=== PATIENT | male | born 1950 | race Caucasian/White ===

== ENCOUNTER 2017-03-24 12:13 | Day surgery (SDC) | payer MEDICARE, OTHER ==
--- NOTE | 2017-03-21 11:02 | HP ---
DATE OF SURGERY: 03/24/2017 ADMISSION DIAGNOSIS: Right inguinal hernia. ANTICIPATED PROCEDURE: Right inguinal herniorrhaphy with mesh. HISTORY OF PRESENT ILLNESS: The patient has moderate sized symptomatic ventral abdominal hernia. He has had cardiac clearance with Dr. Rosalie Garber. PAST MEDICAL HISTORY: ALLERGIES: NONE. MEDICATIONS: Multiple. PAST SURGICAL HISTORY: Pacemaker. Back for upper and lower surgery. SOCIAL HISTORY: Negative. FAMILY HISTORY: Negative. REVIEW OF SYSTEMS: Orthopedic back surgery. Cardiac Dr. Garber. PHYSICAL EXAMINATION: VITAL SIGNS: Normal. CHEST: Clear. COR: Regular. ABDOMEN: Right inguinal hernia visible. IMPRESSION: Symptomatic right inguinal hernia. The patient was wearing a truss in the office. PLAN: Repair with mesh, this was discussed with him in detail.
[~2017-03-24 12:13] MED LIST: BRIDION 200MG/2ML IV ONE; DIPRIVAN 200 MG/20 ML IV ONE; KEFZOL 1 GM ONE; Lactated Ringers 1,000 ML IV ONE; Quelicin Fliptop 200 MG/10 ML IV ONE; SUBLIMAZE 250 MCG/5 ML IV ONE; Sensorcaine 0.25% 10 ML ONE; Versed 2 MG/2 ML Injection IV ONE; Zemuron 100 MG/10 ML IV ONE
[2017-03-24] MEDS ORDERED: CEFAZOLIN 2 GM-D5W BAG** 2 GM/50 ML ML IV ONE (12:22)
[2017-03-24] MEDS ORDERED: Lactated Ringers 1,000 ML IV SCH (12:30)
[2017-03-24] MEDS ORDERED: SUBLIMAZE 100 MCG/2 ML ONE (17:26)
[2017-03-24] MEDS ORDERED: Zofran 4 MG/2 ML VIAL ONE (17:40)
[2017-03-24] MEDS ORDERED: MORPHINE SULFATE 10 MG/ML ONE (17:40)
[2017-03-24 19:24] VITALS: BP 102/65; PULSE 61; O2SAT 93
--- NOTE | 2017-03-25 07:53 | OP ---
SURGERY DATE/TIME: 03/24/2017 1623 PREOPERATIVE DIAGNOSIS: Symptomatic right inguinal hernia. POSTOPERATIVE DIAGNOSIS: Right inguinal hernia. PROCEDURE: Right inguinal herniorrhaphy with mesh. SURGEON: Ronald Le M.D. ANESTHESIA: General. COMPLICATIONS: None. CONDITION: Stable. INDICATION: A patient requiring herniorrhaphy. DESCRIPTION OF PROCEDURE: Taken to surgery. General anesthetic. Routine prep and drape. Time out performed. 0.25% Marcaine. Curvilinear incision. External oblique opened. An indirect hernia was present. No direct component. Internal ring just slightly dilated. Cord was still nice. A sliding hernia. The sliding portion was able to be removed causing a pseudo-sac and then the pseudo-sac sac was highly ligated under direct visualization suture #0 Prolene. The floor was reinforced with 1 x 4 mesh securing the Odilon's ligament fashioned throughout. The cord and the ilioinguinal nerve which was quite prominent were laid back in position. External oblique closed with 0 Vicryl. Porsche approximated with 3-0 Vicryl. Skin closed with deena. Sterile dressing applied. The patient tolerated the procedure satisfactorily.
== END 2017-03-24 19:30 | disposition home or self-care (01) ==
LOC: SDC 12:13
PROVIDERS: ATTEND Surgery
PROC: 0YU50JZ Supplement Right Inguinal Region with Synthetic Substitute, Open Approach (ICD-10-PCS; principal; 2017-03-24)
DX: K40.90 Unilateral inguinal hernia, without obstruction or gangrene, not specified as recurrent (principal); Z95.0 Presence of cardiac pacemaker
CPT/HCPCS: 00830; 36415; 88302; 93005; C1781; J0330; J0690; J2250; J2270; J2405; J2704; J3010

== ENCOUNTER 2018-11-02 08:33 | Day surgery (SDC) | payer MEDICARE, OTHER ==
--- NOTE | 2018-10-31 14:51 | HP ---
DATE OF SURGERY: 11/02/2018 ADMISSION DIAGNOSIS: Left inguinal hernia. ANTICIPATED PROCEDURE: Repair with mesh. HISTORY OF PRESENT ILLNESS: The patient has a moderate sized symptomatic left inguinal hernia presents for repair. PAST MEDICAL HISTORY: ALLERGIES: SULFA. MEDICATIONS: Omeprazole, metoprolol, Xarelto. PAST SURGICAL HISTORY: Pacemaker. Right inguinal hernia repair. SOCIAL HISTORY: Negative. FAMILY HISTORY: Negative. REVIEW OF SYSTEMS: Pacemaker. Atrial fibrillation. PHYSICAL EXAMINATION: VITAL SIGNS: Normal. CHEST: Clear. COR: Regular. ABDOMEN: Left inguinal hernia. IMPRESSION: Moderate size symptomatic left inguinal hernia. PLAN: Repair.
[~2018-11-02 08:33] MED LIST changes: -BRIDION 200MG/2ML IV ONE; -DIPRIVAN 200 MG/20 ML IV ONE; -KEFZOL 1 GM ONE; -Quelicin Fliptop 200 MG/10 ML IV ONE; -SUBLIMAZE 250 MCG/5 ML IV ONE; -Versed 2 MG/2 ML Injection IV ONE; -Zemuron 100 MG/10 ML IV ONE
[2018-11-02] MEDS ORDERED: Versed 2 MG/2 ML Injection IV ONE (08:34)
[2018-11-02] MEDS ORDERED: DIPRIVAN 200 MG/20 ML IV ONE (08:34)
[2018-11-02] MEDS ORDERED: SUBLIMAZE 250 MCG/5 ML IV ONE (08:34)
[2018-11-02] MEDS ORDERED: Lactated Ringers 1,000 ML IV ONE (08:59)
[2018-11-02] MEDS ORDERED: CEFAZOLIN 2 GM-D5W BAG** 2 GM/50 ML ML IV ONE (08:59)
[2018-11-02] MEDS ORDERED: CEFAZOLIN 2 GM-D5W BAG** 2 GM/50 ML ML IV SCH (09:30)
[2018-11-02] MEDS ORDERED: Lactated Ringers 1,000 ML IV SCH (09:30)
[2018-11-02] MEDS ORDERED: KEFZOL 1 GM ONE (11:30)
[2018-11-02] MEDS ORDERED: TRANDATE 100 MG/20 ML MDV FOR DRIP IV ONE (12:57)
[2018-11-02 14:19] VITALS: PULSE 63; O2SAT 99
[2018-11-02 14:25] VITALS: BP 165/94
--- NOTE | 2018-11-03 08:21 | OP ---
SURGERY DATE/TIME: 11/02/2018 1150 PREOPERATIVE DIAGNOSIS: Symptomatic left inguinal hernia. POSTOPERATIVE DIAGNOSIS: Left inguinal hernia sliding. PROCEDURE: Left inguinal herniorrhaphy with mesh. SURGEON: Ronald Le M.D. ANESTHESIA: General. COMPLICATIONS: None. ESTIMATED BLOOD LOSS: None. CONDITION: Stable. INDICATION: The patient with symptomatic left inguinal hernia. DESCRIPTION OF PROCEDURE: Taken to surgery. General anesthetic. Routine prep and drape. Curvilinear incision. 0.25% Marcaine. External oblique opened. A 2.5 inch indirect hernia. There was a 1 inch sliding component of colon with a racing stripe. Just above the colon wall the sac was secured to the upper edge of the residual sac tied off and placed back in the abdomen. Internal ring closed with two sutures of #0 Prolene. A 1 x 4 mesh placed at the Odilon's ligament throughout. Internal ring was one clamp tight. Hemostasis satisfactory. The repair looked excellent. External oblique closed with 0 Vicryl. Porsche fascia closed with 2-0 Vicryl. Skin closed with deena. Sterile dressing applied. The patient tolerated the procedure satisfactorily.
== END 2018-11-02 14:10 | disposition home or self-care (01) ==
LOC: SDC 08:33
PROVIDERS: ATTEND Surgery
DX: K40.90 Unilateral inguinal hernia, without obstruction or gangrene, not specified as recurrent (principal); I10 Essential (primary) hypertension; I48.91 Unspecified atrial fibrillation
CPT/HCPCS: 49505; C1781; 88302; 99100; J0690; J2250; J2704; J3010